=== PATIENT | male | born 1995 | race Caucasian/White ===

== ENCOUNTER 2019-01-23 22:52 | Emergency (ER) | payer OTHER, SELFPAY ==
[2019-01-23 22:53] VITALS: BP 135/90; PULSE 89; RESP 18; TEMP 37; O2SAT 100; BMI 25.8
--- NOTE | 2019-01-23 23:12 | ED.DCSUM_ITS ---
- ER Visit Summary Date of Service: 01/23/19 Chief Complaint: Nausea and vomiting History of Present Illness: The patient is a 23 M no significant past medical or surgical history. Patient states he played softball today. After the game he had a mild frontal headache. Uncertain of nausea and vomiting around 830 in the night. Been having episodes of nausea and vomiting for the last several months from time to time. He denies any head trauma. No trouble moving his arms or legs. Denies any fever. No hematemesis. No diarrhea. No abdominal pain. Physical Examination: Well-appearing young male. Vital signs are stable and afebrile. No distress. H EENT exam pupils round reactive light about 2 mm bilaterally. Extra motions are intact. No facial droop. 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 This is not new. No facial droop. No signs of trauma to his face or scalp. Neck nontender. No lymphadenopathy. No meningismus. Lungs clear to auscultation bilaterally. Heart regular rhythm no murmur. Abdomen soft and nontender. Normal bowel sounds no peritoneal signs. Nondistended. Patient moving all 4 extremities. Neurovascular intact. Fingertip to nose and [id number] within normal limits. 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 Back nontender. Skin unremarkable no rashes. Neurologically he is awake and alert with no focal motor deficits. Test Results: None Emergency Department Course and Treatment: Treated with a liter normal saline IV Zofran for his nausea and IV Toradol for his headache. On repeat exam at 23:54 PM patient is doing some better. States he still nauseated. His neurologic exam remains normal. Will be given a dose of IV Phenergan and checked out the overnight physician. At this time it will feel like he needs any blood work or imaging. Treatment Plan: Fluids and rest. Zofran as needed for nausea. Follow-up if not improving. Return if feeling worse. Disposition: Discharge Impression: Acute nausea and vomiting This note was generated with [employer] dictation software. It may contain incorrect words, spelling, and punctuation that were not noted in review of the chart prior to signing ED Disposition - Plan for ED Patient: Disposition: Home or Assisted Living Instructions: VOMITING (7y-Adult) Referrals: Hawk Taylor MD [STAFF PHYSICIAN] - 1-2 Days if not improving Additional Instructions: Plenty of fluids and rest. Zofran as needed for nausea. Follow-up if you not improving return to the ER if you are feeling worse.
--- NOTE | 2019-01-23 23:15 | ED.DEP ---
ED Disposition - Plan for ED Patient: Disposition: Home or Assisted Living Instructions: VOMITING (7y-Adult) Prescriptions: Ondansetron [Zofran Odt] 4 mg PO Q8H PRN PRN #7 tab PRN Reason: Nausea Prescription Printed Referrals: Hawk Taylor MD [STAFF PHYSICIAN] - 1-2 Days if not improving Additional Instructions: Plenty of fluids and rest. Zofran as needed for nausea. Follow-up if you not improving return to the ER if you are feeling worse.
[2019-01-23] MEDS: Ondansetron 4 MG/2 ML Vial IV (23:19)
[2019-01-23] MEDS: Ketorolac 30 MG/ML Syringe IV (23:20)
[2019-01-23] MEDS: 0.9% Normal Saline 1,000 ML 1000 ML IV (23:20)
[2019-01-23] MEDS: proMETHazine 25 MG/ML Syringe 12.5 MG IV (23:58)
[2019-01-24 00:41] VITALS: RESP 16
== END 2019-01-24 00:50 | disposition home or self-care (01) ==
PROVIDERS: Emergency Provider Emergency Medicine
DX: R11.2 Nausea with vomiting, unspecified (principal); R51 Headache
CPT/HCPCS: 96361; 96374; 96375; 99283; J7030; J2405